=== PATIENT | female | born 1950 | race Caucasian/White ===

== ENCOUNTER 2021-11-26 12:42 | Outpatient (CLI) | payer MEDICARE ==
[~2021-11-26 12:42] MED LIST: Magnevist 469MG/ML 20 ML VIAL ONE
== END 2021-11-26 12:43 | disposition home or self-care (01) ==
LOC: CSHMRI 12:42
PROVIDERS: ATTEND Otolaryngology Plastic Surgery within the Head & Neck
DX: H81.22 Vestibular neuronitis, left ear (principal); G93.89 Other specified disorders of brain; G31.9 Degenerative disease of nervous system, unspecified; R90.82 White matter disease, unspecified
CPT/HCPCS: 70553